=== PATIENT | female | born 1995 | race Caucasian/White ===

== ENCOUNTER → 2019-03-24 14:38 | Observation (INO) ==
[2019-03-24 12:56] LABS: Bilirubin,Urine Negative (Negative); Blood,Urine Negative (Negative); Clarity,Urine Turbid (Clear); Color,Urine Yellow (Yellow); Glucose,Urine (UA) Normal (Normal); Ketones,Urine Negative (Negative); Leukocyte Esterase,Urine Negative (Negative); Nitrite,Urine Negative (Negative); Protein,Urine Negative (Neg-Trace); Specific Gravity,Urine 1.017 (1.010-1.025); Urobilinogen,Urine Normal (Normal)
[2019-03-24 12:58] LABS: Bacteria,Urine Few per hpf (None-Few); Hyaline Casts,Urine None Seen per lpf (None-Few); RBC,Urine 0-3 per hpf (0-3); Squamous Epithelial Cell,Urine Many per lpf (None-Few); WBC,Urine 0-3 per hpf (0-3)
[2019-03-24 13:10] LABS: Amphetamine Screen,Urine Negative ng/mL (Cutoff=1000); Barbiturate Screen,Urine Negative ng/mL (Cutoff=200); Benzodiazepines Screen,Urine Negative ng/mL (Cutoff=200); Cannabinoid Screen,Urine Negative ng/mL (Cutoff = 50); Cocaine Screen,Urine Negative ng/mL (Cutoff= 300); Opiate Screen,Urine Negative ng/mL (Cutoff=300); Phencyclidine Screen,Urine Negative ng/mL (Cutoff=25)
== END | disposition home or self-care (01) ==
LOC: 1NENULAB
PROVIDERS: ADMIT Obstetrics & Gynecology; ATTEND Obstetrics & Gynecology

== ENCOUNTER → 2019-03-31 15:45 | Observation (INO) ==
[2019-03-31 13:06] LABS: Bilirubin,Urine Negative (Negative); Blood,Urine Negative (Negative); Color,Urine Yellow (Yellow); Glucose,Urine (UA) Normal (Normal); Ketones,Urine Negative (Negative); Leukocyte Esterase,Urine Small (Negative); Nitrite,Urine Negative (Negative); PH,Urine 6.5 pH Units (5.0-8.0); Protein,Urine Negative (Neg-Trace); Specific Gravity,Urine 1.023 (1.010-1.025); Urobilinogen,Urine Normal (Normal)
[2019-03-31 13:11] LABS: Bacteria,Urine None Seen per hpf (None-Few); Hyaline Casts,Urine None Seen per lpf (None-Few); RBC,Urine 0-3 per hpf (0-3); Squamous Epithelial Cell,Urine Many per lpf (None-Few)
[2019-03-31 13:12] LABS: Amphetamine Screen,Urine Negative ng/mL (Cutoff=1000); Barbiturate Screen,Urine Negative ng/mL (Cutoff=200); Benzodiazepines Screen,Urine Negative ng/mL (Cutoff=200); Cannabinoid Screen,Urine Negative ng/mL (Cutoff = 50); Cocaine Screen,Urine Negative ng/mL (Cutoff= 300); Opiate Screen,Urine Negative ng/mL (Cutoff=300); Phencyclidine Screen,Urine Negative ng/mL (Cutoff=25)
[2019-03-31 13:14] LABS: Clarity,Urine Slightly Hazy (Clear)
[2019-03-31 14:40] LABS: Candida DNA Not Detected (Not Detect); Gardnerella DNA Not Detected (Not Detect); Trichomonas DNA Not Detected (Not Detect)
== END | disposition home or self-care (01) ==
LOC: 1NENULAB
PROVIDERS: ADMIT Advanced Practice Midwife; ATTEND Advanced Practice Midwife

== ENCOUNTER → 2019-06-02 03:00 | Observation (INO) ==
[2019-06-02 02:07] LABS: Amphetamine Screen,Urine Negative ng/mL (Cutoff=1000); Barbiturate Screen,Urine Negative ng/mL (Cutoff=200); Benzodiazepines Screen,Urine Negative ng/mL (Cutoff=200); Cannabinoid Screen,Urine Negative ng/mL (Cutoff = 50); Cocaine Screen,Urine Negative ng/mL (Cutoff= 300); Opiate Screen,Urine Negative ng/mL (Cutoff=300); Phencyclidine Screen,Urine Negative ng/mL (Cutoff=25)
== END | disposition home or self-care (01) ==
LOC: 1NENULAB
PROVIDERS: ADMIT Registered Nurse; ATTEND Registered Nurse

== ENCOUNTER 2019-06-09 04:00 | Inpatient (IN) ==
[2019-06-09] MEDS ORDERED: *HR* Nalbuphine 10 MG/ML AMPUL IVP PRN (13:18)
[2019-06-09] MEDS ORDERED: Naloxone 0.4 MG/ML INJ IVP PRN (13:18)
[2019-06-09] MEDS ORDERED: Famotidine 20 MG/2 ML VIAL IVP PRN (13:18)
[2019-06-09] MEDS ORDERED: Metoclopramide 10 MG/2 ML VIAL IVP PRN (13:18)
[2019-06-09] MEDS ORDERED: Ondansetron 4 MG/2 ML VIAL IVP PRN (13:19)
[2019-06-09] MEDS ORDERED: Azithromycin 500 MG in 0.9 % Sodium Chloride 250 ML IVPB PRN (13:19)
[2019-06-09] MEDS ORDERED: Lidocaine 1% 20 ML MDV INFILT PRN (13:19)
[2019-06-09] MEDS ORDERED: Oxytocin 20 units/ LR 1000 mL 20 UNIT/1,000 ML BAG IVC SCH (13:30)
[2019-06-09] MEDS ORDERED: Ringers Solution, Lactated 1,000 ML IVC SCH (13:30)
[2019-06-09 13:49] LABS: Basophils % 0.2 %; Eosinophils % 0.5 %; Hemoglobin 8.4 g/dL (11.5-15.4); Immature Granulocytes % 0.5 % (0-4); Lymphocytes # 1.8 K/mcL (0.6-4.6); Lymphocytes % 29.2 %; Mean Corpuscular Hemoglobin 22.7 pg (28.0-33.3); Mean Corpuscular Volume 75.7 fL (83.0-100.0); Mean Platelet Volume 11.6 fL (9.4-12.4); Monocytes # 0.4 K/mcL (0.0-1.3); Monocytes % 6.5 %; Neutrophils # 3.8 K/mcL (1.6-8.9); Platelet Count 142 K/mcL (140-400); Red Cell Distribution Width 15.9 % (11.5-14.5); Segmented Neutrophils % 63.1 %
[2019-06-09 14:39] LABS: Alanine Aminotransferase 8 Units/L (7-52); Aspartate Amino Transferase 16 Units/L (13-39); BUN/Creatinine Ratio 10 (6-26); Blood Urea Nitrogen 6 mg/dL (6-20); Lactate Dehydrogenase 194 Units/L (140-271); Uric Acid 5.2 mg/dL (2.3-7.6); eGFR For African Americans > 60 (> 60); eGFR For Non-African Americans > 60 (> 60)
[2019-06-09 15:09] LABS: Protein/Creatinine Ratio,Urine 0.12 mg/mg (0.00-0.20)
[2019-06-09] MEDS ORDERED: *HR* Labetalol 20 MG/4 ML SYRINGE IVP ONE ×3 (18:45→21:00)
[2019-06-09 20:31] LABS: Amphetamine Screen,Urine Negative ng/mL (Cutoff=1000); Barbiturate Screen,Urine Negative ng/mL (Cutoff=200); Benzodiazepines Screen,Urine Negative ng/mL (Cutoff=200); Cannabinoid Screen,Urine Negative ng/mL (Cutoff = 50); Cocaine Screen,Urine Negative ng/mL (Cutoff= 300); Opiate Screen,Urine Negative ng/mL (Cutoff=300); Phencyclidine Screen,Urine Negative ng/mL (Cutoff=25)
[2019-06-09] MEDS ORDERED: *HR* FentaNYL (PF) 100 MCG/2 ML VIAL EP ONE (21:17)
[2019-06-09] MEDS ORDERED: Epidural Premix (fent/bupiv) 0 ML EP ONE (21:29)
[2019-06-09] MEDS ORDERED: Epidural Premix (fent/bupiv) 110 ML EP SCH (21:30)
[2019-06-10] MEDS ORDERED: Acetaminophen 325 MG TABLET PO PRN (01:29)
[2019-06-10] MEDS ORDERED: Benzocaine/Menthol 56 GM AEROSOL SPRAY TP PRN (01:29)
[2019-06-10] MEDS ORDERED: Oxytocin 20 units/ LR 1000 mL 20 UNIT/1,000 ML BAG IVC SCH (01:29)
[2019-06-10] MEDS ORDERED: Oxytocin 20 units/ LR 1000 mL 20 UNIT/1,000 ML BAG IVC ONE (01:29)
[2019-06-10] MEDS: Ibuprofen 600 MG TABLET PO PRN ×3 (01:57→19:13)
[2019-06-10] MEDS ORDERED: Prenatal Vit/FA 1 EACH TABLET PO SCH (09:00)
[2019-06-10 09:15] LABS: Basophils % 0.1 %; Eosinophils % 0.1 %; Hematocrit 25.8 % (35.3-44.9); Hemoglobin 8.1 g/dL (11.5-15.4); Immature Granulocytes % 0.3 % (0-4); Lymphocytes # 1.7 K/mcL (0.6-4.6); Lymphocytes % 21.1 %; Mean Corpuscular HGB Conc 31.4 g/dL (31.6-35.5); Mean Corpuscular Hemoglobin 22.8 pg (28.0-33.3); Mean Corpuscular Volume 72.5 fL (83.0-100.0); Mean Platelet Volume 11.6 fL (9.4-12.4); Monocytes # 0.6 K/mcL (0.0-1.3); Monocytes % 7.2 %; Neutrophils # 5.7 K/mcL (1.6-8.9); Platelet Count 141 K/mcL (140-400); Red Blood Count 3.56 M/mcL (3.82-4.97); Red Cell Distribution Width 16.1 % (11.5-14.5); Segmented Neutrophils % 71.2 %
[2019-06-10 20:33] VITALS: BP 148/82
== END 2019-06-10 23:55 | disposition home or self-care (01) | DRG 560 ==
LOC: 1NENULAB 12:05 → 1NENUOBS 06-10 01:27
PROVIDERS: ADMIT Obstetrics & Gynecology; ATTEND Obstetrics & Gynecology

== ENCOUNTER 2022-01-03 07:55 | Inpatient (IN) ==
[2022-01-03] MEDS ORDERED: Famotidine 20 MG/2 ML VIAL IVP PRN (08:20)
[2022-01-03] MEDS ORDERED: *HR* Nalbuphine 10 MG/ML AMPUL IV PRN (08:20)
[2022-01-03] MEDS ORDERED: Naloxone 0.4 MG/ML INJ IVP PRN (08:20)
[2022-01-03] MEDS ORDERED: Ondansetron 4 MG/2 ML VIAL IVP PRN (08:20)
[2022-01-03] MEDS ORDERED: Metoclopramide 10 MG/2 ML VIAL IVP PRN (08:20)
[2022-01-03] MEDS ORDERED: Oxytocin 30 UNIT/503 ML BAG IVC SCH (08:30)
[2022-01-03] MEDS: Ringers Solution, Lactated 1,000 ML IVC SCH ×2 (09:04→13:20)
[2022-01-03 09:33] LABS: Basophils % 0.1 %; Eosinophils # 0.1 K/mcL (0.0-0.6); Eosinophils % 0.8 %; Hematocrit 29.7 % (35.3-44.9); Hemoglobin 9.2 g/dL (11.5-15.4); Immature Granulocytes % 0.4 % (0-4); Lymphocytes # 2.1 K/mcL (0.6-4.6); Lymphocytes % 26.5 %; Mean Corpuscular Hemoglobin 24.1 pg (28.0-33.3); Mean Platelet Volume 10.5 fL (9.4-12.4); Monocytes # 0.6 K/mcL (0.0-1.3); Monocytes % 7.4 %; Platelet Count 198 K/mcL (140-400); Red Blood Count 3.81 M/mcL (3.82-4.97); Red Cell Distribution Width 15.2 % (11.5-14.5); Segmented Neutrophils % 64.8 %; White Blood Count 7.7 K/mcL (4.3-11.1)
[2022-01-03 09:42] LABS: Amphetamine Screen,Urine Negative ng/mL (Cutoff=1000); Barbiturate Screen,Urine Negative ng/mL (Cutoff=200); Benzodiazepines Screen,Urine Negative ng/mL (Cutoff=200); Cannabinoid Screen,Urine Negative ng/mL (Cutoff = 50); Cocaine Screen,Urine Negative ng/mL (Cutoff= 300); Opiate Screen,Urine Negative ng/mL (Cutoff=300); Phencyclidine Screen,Urine Negative ng/mL (Cutoff=25)
[2022-01-03] MEDS ORDERED: Ibuprofen 600 MG TABLET PO PRN (14:03)
[2022-01-03] MEDS ORDERED: Lanolin 7 G OINT...G. TP PRN (17:06)
[2022-01-03] MEDS ORDERED: *HR* Oxytocin 10 UNIT/ML VIAL IM ONE (17:06)
[2022-01-03] MEDS ORDERED: Benzocaine/Menthol 56 GM AEROSOL SPRAY TP PRN (17:06)
[2022-01-03] MEDS ORDERED: Measles/Mumps/Rubella Vacc 0.5 ML VIAL SQ PRN (17:06)
[2022-01-03] MEDS ORDERED: *HR* OxyCODONE Immed Rel 5 MG TABLET PO PRN (17:06)
[2022-01-03] MEDS ORDERED: Ondansetron ODT 4 MG TAB.RAPDIS SL PRN (17:06)
[2022-01-03] MEDS: Acetaminophen 325 MG TABLET PO SCH (19:56)
[2022-01-03] MEDS: Ibuprofen 600 MG TABLET PO SCH (19:56)
[2022-01-04] MEDS: Acetaminophen 325 MG TABLET PO SCH (04:08)
[2022-01-04] MEDS: Ibuprofen 600 MG TABLET PO SCH (04:08)
[2022-01-04 04:12] VITALS: O2SAT 98
[2022-01-04 07:13] VITALS: BP 130/86; PULSE 74; TEMP 98.1
[2022-01-04] MEDS ORDERED: Prenatal Vit/FA 1 EACH TABLET PO SCH (09:00)
== END 2022-01-04 15:30 | disposition home or self-care (01) | DRG 560 ==
LOC: 1NENULAB 07:55 → 1NENUOBS 17:16
PROVIDERS: ADMIT Advanced Practice Midwife; ATTEND Advanced Practice Midwife